=== PATIENT | male | born 1965 | race Caucasian/White ===

== ENCOUNTER 2023-09-02 17:41 | Emergency (ER) | payer MEDICAID ==
[~2023-09-02] VITALS: Ht 185.4 cm; Wt 95.3 kg
[2023-09-02 18:51] VITALS: TEMP 98.5
[2023-09-02 18:56] LABS: BASOPHILS # (AUTO) 0.1 X10'3 (0-0.2); BASOPHILS % (AUTO) 0.4 % (0-1); EOSINOPHILS # (AUTO) 0.1 X10'3 (0-0.9); EOSINOPHILS % (AUTO) 0.7 % (0-6); HEMATOCRIT 50.6 % (42.0-52.0); LYMPHOCYTES % (AUTO) 8.4 % (21-51); MEAN CORPUSCULAR HEMOGLOBIN 29.2 PG (27.0-31.0); MEAN CORPUSCULAR HGB CONC 33.6 g/dL (33.0-36.5); MEAN CORPUSCULAR VOLUME 86.8 FL (78-98); MEAN PLATELET VOLUME 9.5 FL (7.4-10.4); MONOCYTES # (AUTO) 0.5 X10'3 (0-0.9); MONOCYTES % (AUTO) 4.1 % (2-12); NEUTROPHILS % (AUTO) 86.4 % (42-75); PLATELET COUNT 155 X10'3 (140-440); RED BLOOD COUNT 5.83 X10'6 (4.70-6.10); WHITE BLOOD COUNT 11.6 X10'3 (4.5-11.0)
[2023-09-02 19:00] LABS: ALANINE AMINOTRANSFERASE 25 U/L (12-78); ALBUMIN 3.4 G/DL (3.4-5.0); ALKALINE PHOSPHATASE 79 IU/L (46-116); ANION GAP 6 (8-16); ASPARTATE AMINO TRANSFERASE 14 U/L (10-37); BILIRUBIN,TOTAL 0.5 MG/DL (0.1-1.0); BLOOD UREA NITROGEN 13 MG/DL (7-18); BUN/CREATININE RATIO 16.9 (10.0-20.0); CALCIUM 8.6 MG/DL (8.5-10.1); CHLORIDE 105 MMOL/L (99-107); CREATININE 0.77 MG/DL (0.60-1.10); GLUCOSE 153 MG/DL (70-104); LIPASE 78 U/L (16-77); POTASSIUM 3.5 MMOL/L (3.5-5.1); SODIUM 136 MMOL/L (135-145); TOTAL CARBON DIOXIDE 24.6 MMOL/L (24-32); TOTAL PROTEIN 6.7 G/DL (6.4-8.2); eCRCL 118 ML/MIN; eGFR > 90 ML/MIN
[2023-09-02 19:34] LABS: BILIRUBIN,URINE NEGATIVE (Neg); CLARITY,URINE CLEAR (Clear); COLOR,URINE STRAW (Yellow); GLUCOSE, URINE NEGATIVE (Neg); KETONES,URINE NEGATIVE (Neg); LEUKOCYTE ESTERASE ,URINE NEGATIVE (Neg); NITRITES, URINE NEGATIVE (Neg); OCCULT BLOOD,URINE NEGATIVE (Neg); PROTEIN,URINE NEGATIVE (Neg); UROBILINOGEN,URINE 0.2 E.U/dL (0.2-1.0)
[2023-09-02 19:44] LABS: UA COLLECTION TYPE CLN CATCH MIDSTREAM
[2023-09-02] MEDS ORDERED: ringers solution, lacted 1,000 ML IV ONE (20:00)
[2023-09-02] MEDS ORDERED: ondansetron/PF 4mg/2ml inj IV ONE (20:00)
[2023-09-02] MEDS ORDERED: acetaminophen 325mg tablet PO ONE (20:00)
[2023-09-02 22:15] VITALS: BP 112/63; PULSE 63; RESP 13; O2SAT 93
[2023-09-02] MEDS ORDERED: ONDA4TAB12 PO (22:22)
== END 2023-09-02 22:47 | disposition home or self-care (01) ==
LOC: ER 17:43
DX: K52.89 Other specified noninfective gastroenteritis and colitis (principal); E86.0 Dehydration; A05.9 Bacterial foodborne intoxication, unspecified
CPT/HCPCS: 36415; 70450; 80053; 81003; 83690; 85025; 87502; 87503; 87811; 96361; 96374; 99285; J2405; J7120